=== PATIENT | male | born 1960 | race Caucasian/White ===

== ENCOUNTER 2016-09-30 15:03 | Emergency (ER) | payer MEDICARE, OTHER ==
[~2016-09-30] VITALS: Ht 175.3 cm; Wt 77.1 kg
[~2016-09-30 15:03] MED LIST: ACYCLOVIR200 MG ORAL; ALBUTEROL SULF8.5 GM INH; AZITHROMYCIN250 MG ORAL; BACITRACIN15 GM TOPIC; KLONOPIN0.5 MG ORAL; LEVAQUIN750 MG ORAL; LEVOFLOXACIN500 MG ORAL; LITHIUM CARBON150 MG ORAL; NEVIRAPINE200 MG PO; NORCO 5-325 TA1 EACH ORAL; OXANDRIN ORAL; PROMETHAZINE-C118 M1 ORAL; QUETIAPINE FUMA25 MG ORAL; SYNTHROID25 MCG ORAL; SYNTHROID300 MCG ORAL; TRUVADA1 TAB ORAL; TYLENOL325 MG ORAL; VICODIN 5-3001 EACH ORAL; VISTARIL25 M1 PO; WELLBUTRIN75 MG ORAL
[2016-09-30] MEDS ORDERED: Mylanta II UD 30ml ORAL ONE (15:45)
[2016-09-30] MEDS ORDERED: Lidocaine 2% Visc 15ml soln ORAL ONE (15:45)
[2016-09-30] MEDS ORDERED: Dicyclomine HCl 10mg/5ml oral soln ORAL ONE (15:45)
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
[2016-09-30] MEDS ORDERED: ZANTAC150 MG ORAL (16:39)
[2016-09-30] MEDS ORDERED: MAALOX MAXIMUM355 M1 PO (16:39)
[2016-09-30 16:59] LABS: EOSINOPHILS % (AUTO) 2.2 % (0.0-3.0); LYMPHOCYTES % (AUTO) 29.4 % (20.0-45.0); MEAN CORPUSCULAR HEMOGLOBIN 38.3 PG (27.0-31.0); MEAN CORPUSCULAR HGB CONC 37.8 G/DL (32.0-36.0); MEAN CORPUSCULAR VOLUME 101 FL (80-99); MEAN PLATELET VOLUME 6.9 FL (6.5-10.1); MONOCYTES % (AUTO) 7.5 % (1.0-10.0); NEUTROPHILS % (AUTO) 59.9 % (45.0-75.0); PLATELET COUNT 230 K/UL (150-450); RED BLOOD COUNT 4.07 M/UL (4.70-6.10); RED CELL DISTRIBUTION WIDTH 10.8 % (11.6-14.8); WHITE BLOOD COUNT 7.8 K/UL (4.8-10.8)
[2016-09-30 17:01] VITALS: BP 126/85
[2016-09-30 17:02] VITALS: BP 126/85
[2016-09-30 17:13] LABS: ANION GAP 14 (5-15); CALCIUM 11.9 mg/dL (8.6-10.2); CARBON DIOXIDE 26 mEQ/L (20-30); CHLORIDE 99 mEQ/L (98-107); CREATININE 1.2 mg/dL (0.7-1.2); GLOMERULAR FILTRATION RATE > 60 mL/min (>60); HEMOLYSIS 11; POTASSIUM 4.3 mEQ/L (3.4-4.9); SODIUM 139 mEQ/L (135-145)
== END 2016-09-30 17:02 | disposition home or self-care (01) ==
LOC: EMR 15:36
DX: K29.70 Gastritis, unspecified, without bleeding (principal); S00.83XA Contusion of other part of head, initial encounter; Y04.2XXA Assault by strike against or bumped into by another person, initial encounter; Y92.89 Other specified places as the place of occurrence of the external cause; F31.9 Bipolar disorder, unspecified
CPT/HCPCS: 36415; 80048; 85025; 99284

== ENCOUNTER 2016-10-29 13:08 | Emergency (ER) | payer MEDICARE, OTHER ==
[~2016-10-29] VITALS: Ht 165.1 cm; Wt 65.8 kg
[~2016-10-29 13:08] MED LIST changes: +MAALOX MAXIMUM355 M1 PO; +ZANTAC150 MG ORAL
[2016-10-29 14:05] VITALS: BP 122/88
[2016-10-29 14:11] LABS: BASOPHILS % (AUTO) 1.2 % (0.0-2.0); EOSINOPHILS % (AUTO) 3.2 % (0.0-3.0); LYMPHOCYTES % (AUTO) 35.3 % (20.0-45.0); MEAN CORPUSCULAR HEMOGLOBIN 35.6 PG (27.0-31.0); MEAN CORPUSCULAR HGB CONC 34.2 G/DL (32.0-36.0); MEAN CORPUSCULAR VOLUME 104 FL (80-99); MONOCYTES % (AUTO) 8.7 % (1.0-10.0); NEUTROPHILS % (AUTO) 51.5 % (45.0-75.0); PLATELET COUNT 227 K/UL (150-450); RED BLOOD COUNT 4.25 M/UL (4.70-6.10); RED CELL DISTRIBUTION WIDTH 11.4 % (11.6-14.8); WHITE BLOOD COUNT 6.8 K/UL (4.8-10.8)
[2016-10-29 14:28] LABS: TROPONIN I < 0.30 ng/mL (<=0.30)
[2016-10-29 14:31] LABS: ALANINE AMINOTRANSFERASE 28 U/L (3-41); ALBUMIN/GLOBULIN RATIO 1.5 (1.0-2.7); ANION GAP 14 (5-15); ASPARTATE AMINO TRANSFERASE 43 U/L (5-40); CALCIUM 10.5 mg/dL (8.6-10.2); CARBON DIOXIDE 24 mEQ/L (20-30); CHLORIDE 101 mEQ/L (98-107); GLOMERULAR FILTRATION RATE > 60 mL/min (>60); HEMOLYSIS 5; LIPASE 44 U/L (< 60); POTASSIUM 4.2 mEQ/L (3.4-4.9); SODIUM 139 mEQ/L (135-145); TOTAL PROTEIN 7.3 g/dL (6.6-8.7)
[2016-10-29 14:41] LABS: CKMB < 1.5 ng/mL (< 6.7)
[2016-10-29 15:23] VITALS: BP 130/88
[2016-10-29 15:45] VITALS: BP 130/88
--- NOTE | 2016-10-29 23:25 | Emergency Room Report ---
History of Present Illness General Chief Complaint: Generalized Weakness Source: Patient Present Illness HPI 55-year-old male presents ED for evaluation. States the last 2 days he's been feeling very weak and has no energy. Patient states he is normally very active. Patient denies any fevers or chills. Denies ear ache or sore throat. Denies any body aches. Denies cough. Denies nausea or vomiting. Denies diarrhea. Patient states 2 weeks prior he was having some abdominal pain and was seen by his PMD. Was prescribed antibiotics. States he completed antibiotic prescription and longer has any abdominal pain but states now he feels very weak. History of HIV-is compliant with his medications. No aggravating relieving factors. Denies any other associated symptoms Allergies: Coded Allergies: No Known Allergies (Unverified , 04/29/13) Patient History Past Medical History: none Past Surgical History: none Pertinent Family History: none Social History: Denies: alcohol use, drug use, smoking Immunizations: UTD Reviewed Nursing Documentation: PMH: Agreed, PSxH: Agreed Nursing Documentation-PMH Hx Cardiac Problems: No Hx Hypertension: No Hx Pacemaker: No Hx Asthma: No Hx COPD: No Hx Diabetes: No Hx Cancer: No Hx Dialysis: No Hx Neurological Problems: No Hx Cerebrovascular Accident: No Hx Seizures: No Review of Systems All Other Systems: negative except mentioned in HPI Physical Exam Vital Signs Date Time Temp Pulse Resp B/P Pulse Ox O2 Delivery O2 Flow Rate FiO2 10/29/16 13:16 98.1 68 16 130/90 99 Room Air Sp02 EP Interpretation: reviewed, normal General Appearance: no apparent distress, alert, GCS 15, non-toxic Head: normocephalic, atraumatic Eyes: bilateral eye PERRL, bilateral eye normal inspection ENT: hearing grossly normal, normal pharynx, no angioedema, normal voice Neck: full range of motion, supple/symm/no masses Respiratory: chest non-tender, lungs clear, normal breath sounds, speaking full sentences Cardiovascular #1: regular rate, rhythm, no edema Cardiovascular #2: 2+ carotid (R), 2+ carotid (L), 2+ radial (R), 2+ radial (L) , 2+ dorsalis pedis (R), 2+ dorsalis pedis (L) Gastrointestinal: normal bowel sounds, non tender, soft, non-distended, no guarding, no rebound Rectal: deferred Genitourinary: normal inspection, no CVA tenderness Musculoskeletal: back normal, gait/station normal, normal range of motion, non- tender Neurologic: alert, oriented x3, responsive, motor strength/tone normal, sensory intact, speech normal Psychiatric: judgement/insight normal, memory normal, mood/affect normal, no suicidal/homicidal ideation Reflexes: 3+ bicep (R), 3+ bicep (L), 3+ tricep (R), 3+ tricep (L), 3+ knee (R) , 3+ knee (L) Skin: normal color, no rash, warm/dry, well hydrated Lymphatic: no adenopathy Medical Decision Making Diagnostic Impression: Primary Impression: Episode of generalized weakness ER Course Hospital Course 55-year-old M presents to ED weakness. Recent completed antibiotic prescription differential diagnosis: dehydration, sepsis, ACS/TX Clinical course Patient placed on stretcher. On manager gaming. After initial history and physical I ordered labs, IV fluids, EKG Labs - no leukocytosis, no electrolyte abnormalities, LFTs normal, UA unremarkable EKG - NSR Abdomen is soft, I do not suspect any abdominal pathology I discussed case with PA of PMD Dr Mckeon; patient was having abdominal pain and was prescribed Cipro and Flagyl. Patient completed antibiotic prescription. He agrees that if patient workup is negative he can likely be discharged I discussed the findings with the patient. We discussed the workup is negative. However I offered patient option for admission if he is still feeling weak. Patient declined states he would prefer to be discharged at this time. Will return to ED if symptoms persist I feel this is a highly complex case requiring extensive working including EKG/ Rhythm strip, Xray/CT/US, Blood/urine lab work, repeat exams while in ED, and administration of strong opiates/narcotics for pain control, admission to hospital or close patient follow up. Diagnosis -episode of generalized weakness Stable and discharged to home. Followup with PMD. Return to ED if symptoms recur or worsen Labs Test 10/29/16 13:45 White Blood Count 6.8 K/UL (4.8-10.8) Red Blood Count 4.25 M/UL (4.70-6.10) Hemoglobin 15.2 G/DL (14.2-18.0) Hematocrit 44.3 % (42.0-52.0) Mean Corpuscular Volume 104 FL (80-99) Mean Corpuscular Hemoglobin 35.6 PG (27.0-31.0) Mean Corpuscular Hemoglobin Concent 34.2 G/DL (32.0-36.0) Red Cell Distribution Width 11.4 % (11.6-14.8) Platelet Count 227 K/UL (150-450) Mean Platelet Volume 7.0 FL (6.5-10.1) Neutrophils (%) (Auto) 51.5 % (45.0-75.0) Lymphocytes (%) (Auto) 35.3 % (20.0-45.0) Monocytes (%) (Auto) 8.7 % (1.0-10.0) Eosinophils (%) (Auto) 3.2 % (0.0-3.0) Basophils (%) (Auto) 1.2 % (0.0-2.0) Sodium Level 139 mEQ/L (135-145) Potassium Level 4.2 mEQ/L (3.4-4.9) Chloride Level 101 mEQ/L (98-107) Carbon Dioxide Level 24 mEQ/L (20-30) Anion Gap 14 (5-15) Blood Urea Nitrogen 12 mg/dL (7-23) Creatinine 1.0 mg/dL (0.7-1.2) Estimat Glomerular Filtration Rate > 60 mL/min (>60) Glucose Level 95 mg/dL (74-106) Calcium Level 10.5 mg/dL (8.6-10.2) Total Bilirubin < 0.2 mg/dL (0.0-1.2) Aspartate Amino Transf (AST/SGOT) 43 U/L (5-40) Alanine Aminotransferase (ALT/SGPT) 28 U/L (3-41) Alkaline Phosphatase 83 U/L (40-129) Total Creatine Kinase 60 U/L (38-174) Creatine Kinase MB < 1.5 ng/mL (< 6.7) Creatine Kinase MB Relative Index Troponin I < 0.30 ng/mL (<=0.30) Total Protein 7.3 g/dL (6.6-8.7) Albumin 4.4 g/dL (3.5-5.2) Globulin 2.9 g/dL Albumin/Globulin Ratio 1.5 (1.0-2.7) Lipase 44 U/L (< 60) EKG Diagnostic Results Rate: normal Rhythm: NSR ST Segments: no acute changes ASA given to the pt in ED: No Rhythm Strip Diag. Results EP Interpretation: yes Rhythm: NSR, no PVC's, no ectopy Last Vital Signs Date Time Temp Pulse Resp B/P Pulse Ox O2 Delivery O2 Flow Rate FiO2 10/29/16 15:45 98.1 86 18 130/88 100 Room Air Status: improved Disposition: HOME, SELF-CARE Condition: Stable Referrals: JACQUELINE MARSH Patient Instructions: SHIVANI Manzanares M.D. October 29, 2016 23:25
--- NOTE | 2016-11-01 14:50 | Cardiology Report ---
APPROVED REPORT EKG Measurement Heart [id number] Normal sinus rhythm Normal ECG
== END 2016-10-29 15:45 | disposition home or self-care (01) ==
LOC: EMR 13:59
DX: R53.1 Weakness (principal)
CPT/HCPCS: 36415; 80053; 82550; 82553; 83690; 84484; 85025; 93005; 96374

== ENCOUNTER 2017-07-10 13:42 | Emergency (ER) | payer MEDICARE, OTHER ==
[~2017-07-10] VITALS: Ht 175.3 cm; Wt 83.9 kg
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
[2017-07-10] MEDS ORDERED: ACETAMINOPHEN325 M1 ORAL (14:12)
[2017-07-10 14:42] VITALS: BP 126/87
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
== END 2017-07-10 15:20 | disposition home or self-care (01) ==
LOC: EMR 14:19
DX: M79.672 Pain in left foot (principal); F31.9 Bipolar disorder, unspecified
CPT/HCPCS: 99283

== ENCOUNTER 2018-01-20 20:48 | Emergency (ER) | payer MEDICARE, OTHER ==
[~2018-01-20] VITALS: Ht 175.3 cm; Wt 79.4 kg
[~2018-01-20 20:48] MED LIST changes: +ACETAMINOPHEN325 M1 ORAL
[2018-01-20] MEDS ORDERED: AMOXICILLIN500 MG ORAL (21:08)
[2018-01-20] MEDS ORDERED: ALBUTEROL SULF8.5 GM INH (21:08)
[2018-01-20 21:18] VITALS: BP 117/79
--- NOTE | 2018-01-26 16:18 | Emergency Room Report ---
History of Present Illness General Chief Complaint: Sore Throat Present Illness HPI Patient is a 57-year-old male who presented after increased sore throat. Patient had noticed increased difficulty with swallowing. He denied any vocal changes. He denies any vomiting or diarrhea. Allergies: Coded Allergies: No Known Allergies (Unverified , 04/29/13) Patient History Past Medical History: see triage record Reviewed Nursing Documentation: PMH: Agreed; PSxH: Agreed Nursing Documentation-PMH Hx Cardiac Problems: No - HIV+ Hx Hypertension: No Hx Pacemaker: No Hx Asthma: No Hx COPD: No Hx Diabetes: No Hx Cancer: No Hx Dialysis: No Hx Neurological Problems: No Hx Cerebrovascular Accident: No Hx Seizures: No Review of Systems All Other Systems: negative except mentioned in HPI Physical Exam General Appearance: well appearing, no apparent distress, alert, GCS 15 Head: normocephalic, atraumatic ENT: hearing grossly normal, normal voice Neck: full range of motion, supple Respiratory: no respiratory distress, speaking full sentences Musculoskeletal: no calf tenderness Neurologic: normal gait Psychiatric: mood/affect normal Skin: no rash Medical Decision Making Diagnostic Impression: Primary Impression: Exudative pharyngitis ER Course patient presented for sore throat.Differential diagnosis included but was not limited to meningitis, exudative tonsillitis, retropharyngeal abscess, epiglottitis, strep pharyngitis. Patient has a benign exam and does not appear to require any further imaging or laboratory testing at this time. The patient was noted evidence of exudative pharyngitis. Patient will be given antibiotics. He is advised follow-up with his primary care physician for recheck. The patient is advised to return if he was becoming dizzy or lightheaded or had increased difficulty swallowing.The patient was given prescription for albuterol for medication refill.The patient is advised to follow up with primary care doctor in 1-2 days. Patient is advised to return if any worsening condition or if any changes in status that are concerning. This report is dictated with writewith driver trainee software which may occasionally lead to discrepancies related to use of this software. Status: improved Disposition: HOME, SELF-CARE Condition: Stable Scripts Albuterol Sulfate* (ALBUTEROL SULFATE MDI*) 8.5 Gm Hfa.aer.ad 2 PUFF INH Q4H PRN for cough/wheezing, #1 EA 0 Refills Prov: Jared Schwartz MD 01/20/18 Amoxicillin* (AMOXIL*) 500 Mg Capsule 500 MG ORAL THREE TIMES A DAY, #21 CAP Prov: Jared Schwartz MD 01/20/18 Referrals: Castro Colbert MD (PCP) Patient Instructions: Pharyngitis Jared Schwartz MD Jan 26, 2018 16:18
== END 2018-01-20 21:18 | disposition home or self-care (01) ==
LOC: EMR 20:58
DX: J02.9 Acute pharyngitis, unspecified (principal)
CPT/HCPCS: 99283